=== PATIENT | female | born 1990 | race Caucasian/White ===

== ENCOUNTER → 2017-01-17 | Outpatient (CLI) | payer OTHER | LOC: MW.CHOBGYN 15:54 | PROVIDERS: ATTEND Advanced Practice Midwife | DX: J02.9 Acute pharyngitis, unspecified (principal) | CPT/HCPCS: 87081; 87880 ==

== ENCOUNTER → 2017-01-24 | Outpatient (CLI) | payer OTHER | END | disposition home or self-care (01) | LOC: MW.CHOBGYN 12:28 | PROVIDERS: ATTEND Advanced Practice Midwife | DX: Z20.828 Contact with and (suspected) exposure to other viral communicable diseases (principal) | CPT/HCPCS: 36415; 86747 ==

== ENCOUNTER 2017-02-12 15:58 | Outpatient (CLI) | payer OTHER | END 2017-02-12 16:37 | disposition home or self-care (01) | LOC: MW.OBCHECK 15:58 | PROVIDERS: ATTEND Obstetrics & Gynecology | DX: O36.8130 Decreased fetal movements, third trimester, not applicable or unspecified (principal); R39.9 Unspecified symptoms and signs involving the genitourinary system | CPT/HCPCS: 59025; 81001; 87086 ==

== ENCOUNTER → 2017-02-12 | Outpatient (CLI) | payer OTHER | LOC: MW.CHOBGYN 15:01 | PROVIDERS: ATTEND Advanced Practice Midwife | DX: R39.9 Unspecified symptoms and signs involving the genitourinary system (principal) | CPT/HCPCS: 81001; 87086 ==

== ENCOUNTER → 2017-02-21 | Outpatient (CLI) | payer OTHER | LOC: MW.CHOBGYN 13:37 | PROVIDERS: ATTEND Advanced Practice Midwife | DX: Z34.90 Encounter for supervision of normal pregnancy, unspecified, unspecified trimester (principal) | CPT/HCPCS: 87081 ==

== ENCOUNTER 2017-02-26 21:29 | Inpatient (IN) | payer OTHER ==
[2017-02-26] MEDS ORDERED: Water For Irrigation,Sterile 1,000 ML Container IRR PRN (21:55)
[2017-02-26] MEDS ORDERED: Misoprostol 200 MCG Tab PO PRN (21:55)
[2017-02-26] MEDS ORDERED: Carboprost Tromethamine 250 MCG/1 ML Amp IM PRN (21:55)
[2017-02-26] MEDS ORDERED: Methylergonovine 0.2 MG/1 ML Amp IM PRN (21:55)
[2017-02-26] MEDS ORDERED: Nalbuphine 10 MG/1 ML Vial IVPUSH PRN (21:55)
[2017-02-26] MEDS ORDERED: Butorphanol 1 MG/ML SDV IVPUSH PRN (21:55)
[2017-02-26] MEDS ORDERED: Sodium Chloride 0.9% 2.5 ML Syringe FLUSH PRN (21:55)
[2017-02-26] MEDS ORDERED: Sodium Chloride 0.9% 10 ML Syringe FLUSH PRN (21:55)
[2017-02-26] MEDS ORDERED: Lidocaine 1% 50 ML MDV INJECT PRN (21:55)
[2017-02-26] MEDS ORDERED: Oxytocin/Lactated Ringers 30 UNIT/500 ML BAG IV SCH (22:00)
--- NOTE | 2017-02-26 22:30 | PCM.LDHP ---
L&D History of Present Illness - General Date of Service: 02/26/17 Admit Problem/Dx: Patient Status Order with Admit Dx/Problem 02/26/17 21:34 Patient Status [ADT] Routine 02/26/17 21:56 Patient Status [ADT] Routine Admission Diagnosis/Problem Admission Diagnosis/Problem - planned 02/26/17 22:25 25 Yo EDC 03/26/2017 36 0/7wks here due to active labor. A+, RI, GBS pos. Source of Information: Patient History Limitations: Reports: No limitations - History of Present Illness Improves with: Reports: None Worsens with: Reports: None Associated Symptoms: Reports: N - Related Data Allergies/Adverse Reactions: Allergies Allergy/AdvReac Type Severity Reaction Status Date / Time No Known Allergies Allergy Verified 02/22/15 07:51 MDT Home Medications: Home Meds Vits #90/Iron Fum/FA [ Formula] 1 tab PO DAILY 02/22/15 [ History] Social & Family History - Tobacco Use Smoking Status *Q: Never Smoker Second Hand Smoke Exposure: No - Alcohol Use Days Per Week of Alcohol Use: 0 Number of Drinks Per Day: 2 Total Drinks Per Week: 0 - Recreational Drug Use Recreational Drug Use: No H&P Review of Systems - Review of Systems: Review Of Systems: ROS reveals no pertinent complaints other than HPI. General: Reports: no symptoms HEENT: Reports: no symptoms Pulmonary: Reports: No Symptoms Cardiovascular: Reports: no symptoms Gastrointestinal: Reports: No symptoms Genitourinary: Reports: no symptoms Musculoskeletal: Reports: no symptoms Skin: Reports: no symptoms Psychiatric: Reports: no symptoms Neurological: Reports: No Symptoms Hematologic/Lymphatic: Reports: no symptoms Immunologic: Reports: no symptoms L&D Exam - Exam Exam: See Below - Vital Signs Weight: 88.904 kg - Exam General: alert, oriented, cooperative HEENT: Hearing intact Lungs: Normal respiratory effort Abdomen: Soft (gravid) Rectal Exam: Deferred Genitourinary: Cervical dilitation Back Exam: full range of motion Extremities: normal inspection Skin: warm, dry, intact Neurological: cranial nerves intact Psychiatric: alert, normal affect, normal mood - Problem List (1) Supervision of normal IUP (intrauterine ) in multigravida SNOMED Code(s): 976823960, 976809515, 130068840 ICD Code: Z34.80 - ENCOUNTER FOR SUPRVSN OF NORMAL , UNSP TRIMESTER Status: Acute Priority: High Current Visit: Yes Qualifiers: Trimester: third trimester Qualified Code(s): Z34.83 - Encounter for supervision of other normal , third trimester Problem List Initiated/Reviewed/Updated: Yes Orders Last 24hrs: Active Orders 24 hr Category Date Time Status Patient Status [ADT] Routine ADT 02/26/17 21:56 Active Heart Tones [RC] CONTINUOUS Care 02/26/17 21:56 Active Non Stress Test [RC] PER UNIT ROUTINE Care 02/26/17 21:34 Active Non Stress Test [RC] PER UNIT ROUTINE Care 02/26/17 21:56 Active May Shower [RC] ASDIRECTED Care 02/26/17 21:56 Active Notify Provider [RC] PRN Care 02/26/17 21:56 Active Up ad Karis [RC] ASDIRECTED Care 02/26/17 21:34 Active Up ad Karis [RC] ASDIRECTED Care 02/26/17 21:56 Active Vaginal Exam [RC] Click To Edit Care 02/26/17 21:34 Active Vaginal Exam [RC] PRN Care 02/26/17 21:56 Active Vital Signs [RC] PER UNIT ROUTINE Care 02/26/17 21:34 Active Vital Signs [RC] PER UNIT ROUTINE Care 02/26/17 21:56 Active CBC W/O DIFF,HEMOGRAM [HEME] Routine Lab 02/26/17 21:56 Ordered TYPE AND SCREEN [BBK] Routine Lab 02/26/17 21:56 Ordered UA W/MICROSCOPIC [URIN] Routine Lab 02/26/17 21:34 Ordered Butorphanol [Stadol] Med 02/26/17 21:55 Active 1 mg IVPUSH Q1H PRN Carboprost Tromethamine [Hemabate DS] Med 02/26/17 21:55 Active 250 mcg IM ASDIRECTED PRN Lactated Ringers [Ringers, Lactated] 1,000 ml Med 02/26/17 22:00 Active IV ASDIRECTED Lidocaine 1% [Xylocaine 1%] Med 02/26/17 21:55 Active 50 ml INJECT .ONCE PRN Methylergonovine [Methergine] Med 02/26/17 21:55 Active 0.2 mg IM ASDIRECTED PRN Misoprostol [Cytotec] Med 02/26/17 21:55 Active 200 mcg PO .ONCE PRN Nalbuphine [Nubain] Med 02/26/17 21:55 Active 10 mg IVPUSH Q1H PRN Oxytocin/Lactated Ringers [Pitocin in LR 30 Units/500 Med 02/26/17 22:00 Active ML] 30 unit in 500 ml IV TITRATE Sodium Chloride 0.9% [Saline Flush] Med 02/26/17 21:55 Active 10 ml FLUSH ASDIRECTED PRN Sodium Chloride 0.9% [Saline Flush] Med 02/26/17 21:55 Active 2.5 ml FLUSH ASDIRECTED PRN Water For Irrigation,Sterile [Sterile Water for Med 02/26/17 21:55 Active Irrigation] 1,000 ml IRR ASDIRECTED PRN Scalp Electrode [WOMSER] Per Unit Routine Oth 02/26/17 21:56 Ordered Peripheral IV Insertion Adult [OM.PC] Routine Oth 02/26/17 21:56 Ordered Resuscitation Status Routine Resus Stat 02/26/17 21:34 Ordered Medication Orders Butorphanol Tartrate (Stadol) 1 mg IVPUSH Q1H PRN PRN Reason: Pain Carboprost Tromethamine (Hemabate Ds) 250 mcg IM ASDIRECTED PRN PRN Reason: Post Hemorrhage Lactated Ringer's (Ringers, Lactated) 1,000 mls @ 150 mls/hr IV ASDIRECTED SPRING Oxytocin/Lactated Ringer's (Pitocin In Lr 30 Units/500 Ml) 30 unit in 500 mls @ 999 mls/hr IV TITRATE SPRING; 999 MUNITS/MIN PRN Reason: Protocol Stop: 02/26/17 22:31 Lidocaine HCl (Xylocaine 1%) 50 ml INJECT .ONCE PRN PRN Reason: Laceration repair Methylergonovine Maleate (Methergine) 0.2 mg IM ASDIRECTED PRN PRN Reason: Post Hemorrhage Misoprostol (Cytotec) 200 mcg PO .ONCE PRN PRN Reason: Post Hemorrhage Nalbuphine HCl (Nubain) 10 mg IVPUSH Q1H PRN PRN Reason: Pain (severe 7-10) Stop: 02/26/17 23:56 Sodium Chloride (Saline Flush) 10 ml FLUSH ASDIRECTED PRN PRN Reason: Keep Vein Open Sodium Chloride (Saline Flush) 2.5 ml FLUSH ASDIRECTED PRN PRN Reason: Keep Vein Open Sterile Water (Sterile Water For Irrigation) 1,000 ml IRR ASDIRECTED PRN PRN Reason: delivery Assessment/Plan Comment:: Labor A: 25 Yo EDC 03/26/2017 36 0/7wks here due to active labor. A+, RI, GBS pos. P: Admit to L&D, epidural prn, anticipate
[2017-02-26] MEDS: Lactated Ringers 1,000 ML IV SCH ×3 (22:35→23:55)
[2017-02-26] MEDS ORDERED: Ropivacaine HCl/PF 100 ML ONE (22:42)
[2017-02-26] MEDS ORDERED: fentaNYL 100 MCG/2 ML SDV ONE (22:42)
--- NOTE | 2017-02-26 22:56 | PCM.PREANE ---
Preanesthetic Assessment - Anesthesia/Transfusion/Family Hx Anesthesia History: Prior Anesthesia Without Reaction Transfusion History: No Prior Transfusion(s) - Review of Systems General: No Symptoms Pulmonary: No Symptoms Cardiovascular: No Symptoms Gastrointestinal: No symptoms Neurological: No Symptoms Other: Reports: None - Physical Assessment NPO Status Date: 02/26/17 NPO Status Time: 22:55 (sips/chips) Height: 5 ft 7 in Weight: 193 lb ASA Class: 2 Mental Status: Alert & Oriented x3 Airway Class: Mallampati = 2 Dentition: Reports: Normal Dentition Thyro-Mental Finger Breadths: 3 Mouth Opening Finger Breadths: 3 ROM/Head Extension: Full Lungs: Clear to auscultation, Normal respiratory effort Cardiovascular: Regular Rate, Regular Rhythm - Lab Values: Laboratory Last Values WBC 18.18 K/uL (4.0-11.0) H 02/26/17 22:21 RBC 4.52 M/uL (4.30-5.90) 02/26/17 22:21 Hgb 10.6 g/dL (12.0-16.0) L 02/26/17 22:21 Hct 33.4 % (36.0-46.0) L 02/26/17 22:21 MCV 73.9 fL (80.0-98.0) L 02/26/17 22:21 MCH 23.5 pg (27.0-32.0) L 02/26/17 22:21 MCHC 31.7 g/dL (31.0-37.0) 02/26/17 22:21 RDW Std Deviation 39.3 fl (28.0-62.0) 02/26/17 22:21 RDW Coeff of Valerio 15 % (11.0-15.0) 02/26/17 22:21 Plt Count 194 K/uL (150-400) 02/26/17 22:21 MPV 11.30 fL (7.40-12.00) 02/26/17 22:21 Nucleated RBC % 0.0 /100WBC 02/26/17 22:21 Nucleated RBCs # 0 K/uL 02/26/17 22:21 - Allergies Allergies/Adverse Reactions: Allergies Allergy/AdvReac Type Severity Reaction Status Date / Time No Known Allergies Allergy Verified 02/22/15 07:51 MDT - Blood Blood Available: No Product(s) Available: None - Anesthesia Plan Free Text/Narrative:: Labor Epidural - Acknowledgements Anesthesia Type Planned: Epidural Pt an Appropriate Candidate for the Planned Anesthesia: Yes Alternatives and Risks of Anesthesia Discussed w Pt/Guardian: Yes Pt/Guardian Understands and Agrees with Anesthesia Plan: Yes PreAnesthesia Questionnaire HEENT History: Reports: Impaired vision [employer] History: Reports: Musculoskeletal History: Reports: Fracture Psychiatric History: Reports: Anxiety - Infectious Disease History Infectious Disease History: Reports: Chicken pox - Past Surgical History HEENT Surgical History: Reports: Tonsillectomy GI Surgical History: Reports: Cholecystectomy - SUBSTANCE USE Smoking Status *Q: Never Smoker Tobacco Use Within Last Twelve Months: No Second Hand Smoke Exposure: No Days Per Week of Alcohol Use: 0 Number of Drinks Per Day: 2 Total Drinks Per Week: 0 Recreational Drug Use History: No - HOME MEDS Home Medications: Home Meds Vits #90/Iron Fum/FA [ Formula] 1 tab PO DAILY 02/22/15 [ History] - CURRENT (IN HOUSE) MEDS Current Meds: Current Medications Butorphanol Tartrate (Stadol) 1 mg IVPUSH Q1H PRN PRN Reason: Pain Carboprost Tromethamine (Hemabate Ds) 250 mcg IM ASDIRECTED PRN PRN Reason: Post Hemorrhage Lactated Ringer's (Ringers, Lactated) 1,000 mls @ 150 mls/hr IV ASDIRECTED SPRING Last Admin: 02/26/17 22:35 Dose: 500 mls/hr Lidocaine HCl (Xylocaine 1%) 50 ml INJECT .ONCE PRN PRN Reason: Laceration repair Methylergonovine Maleate (Methergine) 0.2 mg IM ASDIRECTED PRN PRN Reason: Post Hemorrhage Misoprostol (Cytotec) 200 mcg PO .ONCE PRN PRN Reason: Post Hemorrhage Nalbuphine HCl (Nubain) 10 mg IVPUSH Q1H PRN PRN Reason: Pain (severe 7-10) Stop: 02/26/17 23:56 Sodium Chloride (Saline Flush) 10 ml FLUSH ASDIRECTED PRN PRN Reason: Keep Vein Open Sodium Chloride (Saline Flush) 2.5 ml FLUSH ASDIRECTED PRN PRN Reason: Keep Vein Open Sterile Water (Sterile Water For Irrigation) 1,000 ml IRR ASDIRECTED PRN PRN Reason: delivery Discontinued Medications Fentanyl (Sublimaze) Confirm Administered Dose 100 mcg .ROUTE .STK-MED ONE Stop: 02/26/17 22:43 Oxytocin/Lactated Ringer's (Pitocin In Lr 30 Units/500 Ml) 30 unit in 500 mls @ 999 mls/hr IV TITRATE SPRING; 999 MUNITS/MIN PRN Reason: Protocol Stop: 02/26/17 22:31 Ropivacaine (Naropin 0.2%) Confirm Administered Dose 100 mls @ as directed .ROUTE .STK-MED ONE Stop: 02/26/17 22:43
[2017-02-27] MEDS ORDERED: Ondansetron 4 MG/2 ML SDV IVPUSH PRN (01:46)
[2017-02-27] MEDS ORDERED: Ropivacaine HCl/PF 100 ML ONE (05:56)
[2017-02-27] MEDS ORDERED: Oxytocin/Lactated Ringers 30 UNIT/500 ML BAG ONE (07:40)
[2017-02-27] MEDS ORDERED: Witch Hazel Medicated Pads 40/Jar TOP PRN (08:52)
[2017-02-27] MEDS ORDERED: Lanolin 100% Cream 7 GM Tube TOP PRN (08:52)
[2017-02-27] MEDS ORDERED: Docusate Sodium 100 MG Cap PO PRN (08:52)
[2017-02-27] MEDS ORDERED: Ibuprofen 400 MG Tab PO PRN (08:52)
[2017-02-27] MEDS ORDERED: oxyCODONE 5 MG Tab PO PRN (08:52)
[2017-02-27] MEDS ORDERED: Acetaminophen 500 MG Tab PO PRN ×2 (08:52)
[2017-02-27] MEDS ORDERED: Benzocaine/Menthol 20%-0.5% Spray 78 GM Cannister TOP PRN (08:52)
[2017-02-27] MEDS ORDERED: Bisacodyl 10 MG Supp RECTAL PRN (08:52)
--- NOTE | 2017-02-27 10:14 | PCM.DEL ---
L & D Note - General Info Date of Service: 02/27/17 Mother's Due Date: 03/26/17 - Delivery Note Labor: spontaneous Delivery Outcome: Livebirth Infant Delivery Method: Spontaneous Vaginal Delivery Infant Delivery Mode: Spontaneous Presentation: Vertex Nuchal cord: present Amniotic Fluid Description: Clear Episiotomy Type: None Laceration: none Placenta: intact, spontaneous Cord: 3 vessels Estimated blood loss: 100 Resuscitation needed: No Score 1 min: 9 Score 5 min: 9 Second Stage Interventions: Reports: Pushing Effectively Delivery Comments (Free Text/Narrative):: of viable female (Laurennljose) over intact perineum. Head delivered with loose nuchel noted, shoulders and body delivered easily through the cord. to mothers abdomen with RN at bs for eval. Delayed cord clamping. Pitocin to IVF. Cord clamped and cut by FOB. Cord blood collected. Placenta delivered grossly intact. Inspection noted intact perineum. Biman normal. Counts correct 07/31. EBL 100cc, APGARS 9/9, Wt: 7pounds even. Mother and baby left in stable condition for recovery. - General Info Date of Service: 02/27/17 Admission Dx/Problem (Free Text): Patient Status Order with Admit Dx/Problem 02/26/17 21:34 Patient Status [ADT] Routine 02/26/17 21:56 Patient Status [ADT] Routine Admission Diagnosis/Problem Admission Diagnosis/Problem - planned 02/26/17 22:25 25 Yo EDC 03/26/2017 36 0/7wks here due to active labor. A+, RI, GBS pos. Functional Status: Reports: pain controlled, tolerating diet - Review of Systems General: Reports: No Symptoms HEENT: Reports: no symptoms Pulmonary: Reports: no symptoms Cardiovascular: Reports: No Symptoms Gastrointestinal: Reports: No symptoms Genitourinary: Reports: no symptoms Musculoskeletal: Reports: no symptoms Skin: Reports: no symptoms Neurological: Reports: No Symptoms Psychiatric: Reports: no symptoms - Patient Data Weight - most recent: 87.543 kg Lab Results last 24 hrs: Laboratory Results - last 24 hr 02/26/17 02/26/17 02/26/17 Range/Units 22:21 22:21 22:45 WBC 18.18 H (4.0-11.0) K/uL RBC 4.52 (4.30-5.90) M/uL Hgb 10.6 L (12.0-16.0) g/dL Hct 33.4 L (36.0-46.0) % MCV 73.9 L (80.0-98.0) fL MCH 23.5 L (27.0-32.0) pg MCHC 31.7 (31.0-37.0) g/dL RDW Std Deviation 39.3 (28.0-62.0) fl RDW Coeff of Valerio 15 (11.0-15.0) % Plt Count 194 (150-400) K/uL MPV 11.30 (7.40-12.00) fL Nucleated RBC % 0.0 /100WBC Nucleated RBCs # 0 K/uL Urine Color YELLOW Urine Appearance SLT CLOUDY Urine pH 5.5 (5.0-8.0) Ur Specific [place] 1.020 (1.001-1.035) Urine Protein NEGATIVE (NEGATIVE) mg/dL Urine Glucose (UA) NEGATIVE (NEGATIVE) mg/dL Urine Ketones NEGATIVE (NEGATIVE) mg/dL Urine Occult Blood NEGATIVE (NEGATIVE) Urine Nitrite NEGATIVE (NEGATIVE) Urine Bilirubin NEGATIVE (NEGATIVE) Urine Urobilinogen 0.2 (<2.0) EU/dL Ur Leukocyte Esterase SMALL (NEGATIVE) Urine RBC 0-1 (0-2/HPF) Urine WBC 10-12 (0-5/HPF) Ur Epithelial Cells MANY (NONE-FEW) Urine Bacteria 2+ H (NEGATIVE) Urine Mucus LIGHT (NONE-MOD) Blood Type A POSITIVE Antibody Screen NEGATIVE Med Orders - Current: Current Medications Acetaminophen (Tylenol Extra Strength) 500 mg PO Q4H PRN PRN Reason: Pain Acetaminophen (Tylenol Extra Strength) 1,000 mg PO Q4H PRN PRN Reason: Pain Benzocaine/Menthol (Dermoplast Pain Relief 20%-0.5% Marked Tree) 78 gm TOP ASDIRECTED PRN PRN Reason: Perineal Comfort Measure Bisacodyl (Dulcolax) 10 mg RECTAL .ONCE PRN PRN Reason: Constipation Docusate Sodium (Colace) 100 mg PO BID PRN PRN Reason: Constipation Emollient Ointment (Lansinoh Hpa) 0 gm TOP ASDIRECTED PRN PRN Reason: Sore Nipples Ibuprofen (Motrin) 400 mg PO Q4H PRN PRN Reason: Pain Ibuprofen (Motrin) 800 mg PO Q6H PRN PRN Reason: Pain Oxycodone HCl (Oxycodone) 5 mg PO Q2H PRN PRN Reason: Pain Witch Lis (Tucks) 1 pad TOP ASDIRECTED PRN PRN Reason: comfort care Discontinued Medications Butorphanol Tartrate (Stadol) 1 mg IVPUSH Q1H PRN PRN Reason: Pain Carboprost Tromethamine (Hemabate Ds) 250 mcg IM ASDIRECTED PRN PRN Reason: Post Hemorrhage Fentanyl (Sublimaze) Confirm Administered Dose 100 mcg .ROUTE .[facility]-MED ONE Stop: 02/26/17 22:43 Lactated Ringer's (Ringers, Lactated) 1,000 mls @ 150 mls/hr IV ASDIRECTED SPRING Last Admin: 02/26/17 23:55 Dose: 125 mls/hr Oxytocin/Lactated Ringer's (Pitocin In Lr 30 Units/500 Ml) 30 unit in 500 mls @ 999 mls/hr IV TITRATE SPRING; 999 MUNITS/MIN PRN Reason: Protocol Stop: 02/26/17 22:31 Last Admin: 02/27/17 08:07 Dose: 999 munits/min, 999 mls/hr Ropivacaine (Naropin 0.2%) Confirm Administered Dose 100 mls @ as directed .ROUTE .ST-MED ONE Stop: 02/26/17 22:43 Ropivacaine (Naropin 0.2%) Confirm Administered Dose 100 mls @ as directed .ROUTE .[facility]-MED ONE Stop: 02/27/17 05:57 Oxytocin/Lactated Ringer's (Pitocin In Lr 30 Units/500 Ml) Confirm Administered Dose 30 unit in 500 mls @ as directed .ROUTE .[facility]-MED ONE Stop: 02/27/17 07:41 Lidocaine HCl (Xylocaine 1%) 50 ml INJECT .ONCE PRN PRN Reason: Laceration repair Methylergonovine Maleate (Methergine) 0.2 mg IM ASDIRECTED PRN PRN Reason: Post Hemorrhage Misoprostol (Cytotec) 200 mcg PO .ONCE PRN PRN Reason: Post Hemorrhage Nalbuphine HCl (Nubain) 10 mg IVPUSH Q1H PRN PRN Reason: Pain (severe 7-10) Stop: 02/26/17 23:56 Ondansetron HCl (Zofran) 8 mg IVPUSH Q6H PRN PRN Reason: Nausea/Vomiting Last Admin: 02/27/17 02:12 Dose: 8 mg Sodium Chloride (Saline Flush) 10 ml FLUSH ASDIRECTED PRN PRN Reason: Keep Vein Open Sodium Chloride (Saline Flush) 2.5 ml FLUSH ASDIRECTED PRN PRN Reason: Keep Vein Open Sterile Water (Sterile Water For Irrigation) 1,000 ml IRR ASDIRECTED PRN PRN Reason: delivery - Exam General: alert, oriented, cooperative, no acute distress Lungs: Normal respiratory effort Abdomen: soft, no tenderness, no distension (Female) Exam: Normal external exam, Normal bimanual exam, Vaginal bleeding Back Exam: normal inspection Extremities: no edema Skin: warm, dry, intact Wound/Incisions: healing well Neurological: no new focal deficit Psy/Mental Status: alert - Problem List & Annotations (1) Supervision of normal IUP (intrauterine ) in multigravida SNOMED Code(s): 435873794, 829022799, 171388511 Code(s): Z34.80 - ENCOUNTER FOR SUPRVSN OF NORMAL , UNSP TRIMESTER Status: Acute Priority: High Current Visit: Yes Qualifiers: Trimester: third trimester Qualified Code(s): Z34.83 - Encounter for supervision of other normal , third trimester (2) (normal spontaneous vaginal delivery) SNOMED Code(s): 22645027 Code(s): O80 - ENCOUNTER FOR FULL-TERM UNCOMPLICATED DELIVERY Status: Acute Priority: Medium Current Visit: Yes - Problem List Review Problem List Initiated/Reviewed/Updated: Yes - My Orders Last 24 Hours: My Active Orders 02/26/17 21:56 May Shower [RC] ASDIRECTED Notify Provider [RC] PRN Up ad Karis [RC] ASDIRECTED Vital Signs [RC] PER UNIT ROUTINE 02/27/17 08:52 May Shower [RC] ASDIRECTED Up ad Karis [RC] ASDIRECTED Vital Signs [RC] PER UNIT ROUTINE Acetaminophen [Tylenol Extra Strength] 1,000 mg PO Q4H PRN Acetaminophen [Tylenol Extra Strength] 500 mg PO Q4H PRN Benzocaine/Menthol [Dermoplast Pain Relief 20%-0.5% Marked [place]] 78 gm TOP ASDIRECTED PRN Bisacodyl [Dulcolax] 10 mg RECTAL .ONCE PRN Docusate Sodium [Colace] 100 mg PO BID PRN Ibuprofen [Motrin] 400 mg PO Q4H PRN Ibuprofen [Motrin] 800 mg PO Q6H PRN Lanolin [Lansinoh HPA] See Dose Instructions TOP ASDIRECTED PRN Witch Lis [Tucks] 1 pad TOP ASDIRECTED PRN oxyCODONE 5 mg PO Q2H PRN Assess Lochia [WOMSER] Per Unit Routine Assess Uterine Involution [WOMSER] Per Unit Routine Peripheral IV Discontinue [OM.PC] Routine Resuscitation Status Routine 02/27/17 08:53 Patient Status [ADT] Routine 02/27/17 Breakfast Regular Diet [DIET] - Assessment Assessment:: of viable healthy girl. Intact perineum, EBL 100cc, APGARS 9/9, Wt: 7 pounds - Plan Plan:: Labor A: 25 Yo EDC 03/26/2017 36 0/7wks here due to active labor. A+, RI, GBS pos. P: Admit to L&D, epidural prn, anticipate Delivery P: Routine pp plan of care.
[2017-02-27] MEDS: Ibuprofen 800 MG Tab PO PRN ×2 (15:29→23:18)
--- NOTE | 2017-02-27 21:18 | PCM48HPAN ---
Post Anesthesia Note - EVALUATION WITHIN 48HRS OF ANESTHETIC Vital Signs in Normal Range: Yes Patient Participated in Evaluation: Yes Respiratory Function Stable: Yes Airway Patent: Yes Cardiovascular Function Stable: Yes Hydration Status Stable: Yes Pain Control Satisfactory: Yes Nausea and Vomiting Control Satisfactory: Yes Mental Status Recovered: Yes - COMMENTS/OBSERVATIONS Free Text/Narrative:: Full return of sensation and motor movement to lower extremities. No complaints associated with epidural.
--- NOTE | 2017-02-28 07:42 | PCM.DCSUM1 ---
Discharge Summary - Hospital Course Free Text/Narrative:: Discharge home with . Follow up 6 weeks or sooner if needed. - Discharge Data Discharge Date: 02/28/17 Discharge Disposition: Home, Self-Care 01 Condition: Good - Discharge Diagnosis/Problem(s) (1) Supervision of normal IUP (intrauterine ) in multigravida SNOMED Code(s): 158562214, 370840881, [id number] ICD Code: Z34.80 - ENCOUNTER FOR SUPRVSN OF NORMAL , UNSP TRIMESTER Status: Acute Priority: High Current Visit: Yes Qualifiers: Trimester: third trimester Qualified Code(s): Z34.83 - Encounter for supervision of other normal , third trimester (2) (normal spontaneous vaginal delivery) SNOMED Code(s): 63039718 ICD Code: O80 - ENCOUNTER FOR FULL-TERM UNCOMPLICATED DELIVERY Status: Acute Priority: Medium Current Visit: Yes - Patient Instructions Diet: Usual Diet as Tolerated Activity: As Tolerated, Rest and Relax Today Driving: May Drive Today Showering/Bathing: May Shower Notify Provider of: Fever, Increased Pain, Swelling and Redness, Nausea and/or Vomiting Other/Special Instructions: Discharge home with . Follow up 6 weeks or sooner if needed. - Discharge Plan Home Medications: Home Meds Vits #90/Iron Fum/FA [ Formula] 1 tab PO DAILY 02/22/15 [ History] Referrals: Peggy Martinez CNM [Mid-] - 04/03/17 10:45 am (6 wk check) - General Info Date of Service: 02/28/17 Admission Dx/Problem (Free Text: Patient Status Order with Admit Dx/Problem 02/26/17 21:34 Patient Status [ADT] Routine 02/26/17 21:56 Patient Status [ADT] Routine Admission Diagnosis/Problem Admission Diagnosis/Problem - planned 02/26/17 22:25 25 Yo EDC 03/26/2017 36 0/7wks here due to active labor. A+, RI, GBS pos. Functional Status: Reports: pain controlled, tolerating diet, ambulating, urinating - Review of Systems General: Reports: No Symptoms HEENT: Reports: no symptoms Pulmonary: Reports: no symptoms Cardiovascular: Reports: No Symptoms Gastrointestinal: Reports: No symptoms Genitourinary: Reports: no symptoms Musculoskeletal: Reports: no symptoms Skin: Reports: no symptoms Neurological: Reports: No Symptoms Psychiatric: Reports: no symptoms - Patient Data Vitals - Most Recent: Last Vital Signs Temp 37.2 C 02/28/17 05:21 Pulse 71 02/28/17 05:21 Resp 14 02/28/17 05:21 BP 108/61 02/28/17 05:21 Pulse Ox 96 02/28/17 05:21 Weight - Most Recent: 87.543 kg Med Orders - Current: Current Medications Acetaminophen (Tylenol Extra Strength) 500 mg PO Q4H PRN PRN Reason: Pain Acetaminophen (Tylenol Extra Strength) 1,000 mg PO Q4H PRN PRN Reason: Pain Benzocaine/Menthol (Dermoplast Pain Relief 20%-0.5% [place]) 78 gm TOP ASDIRECTED PRN PRN Reason: Perineal Comfort Measure Bisacodyl (Dulcolax) 10 mg RECTAL .ONCE PRN PRN Reason: Constipation Docusate Sodium (Colace) 100 mg PO BID PRN PRN Reason: Constipation Emollient Ointment (Lansinoh Hpa) 0 gm TOP ASDIRECTED PRN PRN Reason: Sore Nipples Ibuprofen (Motrin) 400 mg PO Q4H PRN PRN Reason: Pain Ibuprofen (Motrin) 800 mg PO Q6H PRN PRN Reason: Pain Last Admin: 02/27/17 23:18 Dose: 800 mg Oxycodone HCl (Oxycodone) 5 mg PO Q2H PRN PRN Reason: Pain Witch Lis (Tucks) 1 pad TOP ASDIRECTED PRN PRN Reason: comfort care Discontinued Medications Butorphanol Tartrate (Stadol) 1 mg IVPUSH Q1H PRN PRN Reason: Pain Carboprost Tromethamine (Hemabate Ds) 250 mcg IM ASDIRECTED PRN PRN Reason: Post Hemorrhage Fentanyl (Sublimaze) Confirm Administered Dose 100 mcg .ROUTE .STK-MED ONE Stop: 02/26/17 22:43 Last Admin: 02/27/17 22:35 Dose: Not Given Lactated Ringer's (Ringers, Lactated) 1,000 mls @ 150 mls/hr IV ASDIRECTED [facility] Last Admin: 02/26/17 23:55 Dose: 125 mls/hr Oxytocin/Lactated Ringer's (Pitocin In Lr 30 Units/500 Ml) 30 unit in 500 mls @ 999 mls/hr IV TITRATE [place]; 999 MUNITS/MIN PRN Reason: Protocol Stop: 02/26/17 22:31 Last Admin: 02/27/17 08:07 Dose: 999 munits/min, 999 mls/hr Ropivacaine (Naropin 0.2%) Confirm Administered Dose 100 mls @ as directed .ROUTE .[employer] ONE Stop: 02/26/17 22:43 Last Admin: 02/27/17 22:35 Dose: Not Given Ropivacaine (Naropin 0.2%) Confirm Administered Dose 100 mls @ as directed .ROUTE .[employer] ONE Stop: 02/27/17 05:57 Last Admin: 02/27/17 22:35 Dose: Not Given Oxytocin/Lactated Ringer's (Pitocin In Lr 30 Units/500 Ml) Confirm Administered Dose 30 unit in 500 mls @ as directed .ROUTE .[employer] ONE Stop: 02/27/17 07:41 Last Admin: 02/27/17 22:35 Dose: Not Given Lidocaine HCl (Xylocaine 1%) 50 ml INJECT .ONCE PRN PRN Reason: Laceration repair Methylergonovine Maleate (Methergine) 0.2 mg IM ASDIRECTED PRN PRN Reason: Post Hemorrhage Misoprostol (Cytotec) 200 mcg PO .ONCE PRN PRN Reason: Post Hemorrhage Nalbuphine HCl (Nubain) 10 mg IVPUSH Q1H PRN PRN Reason: Pain (severe 7-10) Stop: 02/26/17 23:56 Ondansetron HCl (Zofran) 8 mg IVPUSH Q6H PRN PRN Reason: Nausea/Vomiting Last Admin: 02/27/17 02:12 Dose: 8 mg Sodium Chloride (Saline Flush) 10 ml FLUSH ASDIRECTED PRN PRN Reason: Keep Vein Open Sodium Chloride (Saline Flush) 2.5 ml FLUSH ASDIRECTED PRN PRN Reason: Keep Vein Open Sterile Water (Sterile Water For Irrigation) 1,000 ml IRR ASDIRECTED PRN PRN Reason: delivery - Exam General: Reports: alert, oriented, cooperative, no acute distress Lungs: Reports: Clear to auscultation, Normal respiratory effort Cardiovascular: Reports: Regular Rate, Regular Rhythm, No Murmurs Abdomen: Reports: soft, no tenderness, no distension (Female) Exam: Vaginal Bleeding Rectal (Female) Exam: Deferred Back Exam: Reports: Full Range of Motion Extremities: Reports: no edema, normal pulses Skin: Reports: warm, dry, intact Wound/Incisions: Reports: healing well Neurological: Reports: no new focal deficit Psy/Mental Status: Reports: alert, normal affect, normal mood *Q Meaningful Use (DIS) - VTE *Q VTE Criteria *Q: - Stroke *Q Stroke Criteria *Q: - AMI *Q AMI Criteria *Q:
[2017-02-28] MEDS: Ibuprofen 800 MG Tab PO PRN (07:50)
[2017-02-28 08:19] VITALS: BP 104/61
== END 2017-02-28 10:40 | disposition home or self-care (01) | DRG 775 ==
LOC: MW.OBCHECK 21:29 → MW.OB 21:30 → MW.OBCHECK 21:56 → OBSVTOIN 02-27 09:14 → MW.OB 02-27 10:13
PROVIDERS: ADMIT Obstetrics & Gynecology; ATTEND Obstetrics & Gynecology
PROC: 10E0XZZ Delivery of Products of Conception, External Approach (ICD-10-PCS; principal; 2017-02-27)
PROC: 10907ZC Drainage of Amniotic Fluid, Therapeutic from Products of Conception, Via Natural or Artificial Opening (ICD-10-PCS; 2017-02-27)
DX: O80 Encounter for full-term uncomplicated delivery (principal); Z3A.36 36 weeks gestation of pregnancy; Z37.0 Single live birth
CPT/HCPCS: 01967; 36415; 59025; 81001; 85027; 86850; 86900; 86901; A9270-GY; J2405; J2795; J3010; J7120

== ENCOUNTER 2022-02-07 01:04 | Inpatient (IN) | payer OTHER ==
[2022-02-07] MEDS ORDERED: Terbutaline 1 MG/ML SDV SUBCUT PRN (05:16)
[2022-02-07] MEDS ORDERED: Lidocaine 1% 50 ML MDV INJECT PRN (05:18)
[2022-02-07] MEDS ORDERED: Sodium Chloride 0.9% 10 ML Syringe FLUSH PRN (05:18)
[2022-02-07] MEDS ORDERED: Water For Irrigation,Sterile 1,000 ML Container IRR PRN (05:18)
[2022-02-07] MEDS ORDERED: Sodium Chloride 0.9% 20 ML SDV IV PRN (05:18)
[2022-02-07] MEDS ORDERED: Methylergonovine 0.2 MG/1 ML Amp IM PRN (05:18)
[2022-02-07] MEDS ORDERED: Carboprost Tromethamine 250 MCG/1 ML Amp IM PRN (05:18)
[2022-02-07] MEDS ORDERED: Butorphanol 1 MG/ML SDV IVPUSH PRN (05:18)
[2022-02-07] MEDS ORDERED: Sodium Chloride 0.9% 2.5 ML Syringe FLUSH PRN (05:18)
[2022-02-07] MEDS ORDERED: Tranexamic Acid 1,000 MG in Sodium Chloride 0.9% 100 ML IV PRN (05:18)
[2022-02-07] MEDS ORDERED: Misoprostol 200 MCG Tab PO PRN (05:18)
[2022-02-07] MEDS ORDERED: Oxytocin/0.9 % Sodium Chloride 30 UNIT/500 ML BAG IV SCH ×2 (05:30)
[2022-02-07] MEDS: Lactated Ringers 1,000 ML IV SCH ×2 (07:45→16:51)
[2022-02-07] MEDS ORDERED: Ropivacaine 100 ML ONE (08:12)
[2022-02-07] MEDS: Ondansetron 4 MG/2 ML SDV IVPUSH PRN ×2 (09:08→13:59)
[2022-02-07] MEDS ORDERED: ePHEDrine 50 MG/ML SDV IVPUSH PRN (10:55)
[2022-02-07] MEDS ORDERED: Ropivacaine 200 MG in Premix Bag 1 BAG EPIDUR SCH (11:00)
[2022-02-07] MEDS ORDERED: Witch Hazel Medicated Pads 40/Jar TOP PRN (13:56)
[2022-02-07] MEDS ORDERED: Docusate Sodium 100 MG Cap PO PRN (13:56)
[2022-02-07] MEDS ORDERED: Benzocaine/Menthol 20%-0.5% Spray 78 GM Cannister TOP PRN (13:56)
[2022-02-07] MEDS ORDERED: Acetaminophen 500 MG Tab PO PRN ×2 (13:56)
[2022-02-07] MEDS ORDERED: Ibuprofen 400 MG Tab PO PRN (13:56)
[2022-02-07] MEDS ORDERED: Bisacodyl 10 MG Supp RECTAL PRN (13:56)
[2022-02-07] MEDS ORDERED: Lanolin 100% Cream 7 GM Tube TOP PRN (13:56)
[2022-02-07] MEDS ORDERED: ceFAZolin 1 GM in Premix Bag 1 BAG IV ONE (16:11)
[2022-02-07] MEDS: Ibuprofen 800 MG Tab PO PRN (21:08)
[2022-02-08] MEDS: Ibuprofen 800 MG Tab PO PRN (06:47)
[2022-02-08 13:41] VITALS: BP 113/69; PULSE 56
== END 2022-02-08 15:50 | disposition home or self-care (01) | DRG 807 ==
LOC: MW.OBCHECK 01:04 → MW.OB 01:25 → MW.OBCHECK 04:45 → OBSVTOIN 11:29 → MW.OB 14:05
PROVIDERS: ADMIT Obstetrics & Gynecology; ATTEND Obstetrics & Gynecology Obstetrics
PROC: 10E0XZZ Delivery of Products of Conception, External Approach (ICD-10-PCS; principal; 2022-02-07)
PROC: 3E0R3BZ Introduction of Anesthetic Agent into Spinal Canal, Percutaneous Approach (ICD-10-PCS; 2022-02-07)
PROC: 10907ZC Drainage of Amniotic Fluid, Therapeutic from Products of Conception, Via Natural or Artificial Opening (ICD-10-PCS; 2022-02-07)
DX: O70.0 First degree perineal laceration during delivery (principal); Z37.0 Single live birth; Z3A.38 38 weeks gestation of pregnancy; Z20.822 Contact with and (suspected) exposure to COVID-19
CPT/HCPCS: 36415; 51702; 59025; 59409; 85014; 85018; 85027; 86592; 86850; 86900; 86901; A9270-GY; J0690; J2405; J2590; J2795; J7120; U0002